=== PATIENT | female | born 1965 | race Caucasian/White ===

== ENCOUNTER 2017-05-03 15:30 | Outpatient (CLI) | payer OTHER ==
--- NOTE | 2017-05-05 10:17 | XRAY Report ---
LUMBAR SPINE, TWO VIEWS: 05/03/2017 CLINICAL HISTORY: Patient has back pain. FINDINGS: Five nonrib-bearing lumbar-type vertebrae are noted. Significant disk space narrowing is noted at L5-S1. Minimal anterior spurring is noted at L5-S1. Disk spaces appear normal. SI joints show no significant abnormality. Minor Schmorl's node deformities are seen along the superior aspect of L4 and along the superior aspect of L5. IMPRESSION: DEGENERATIVE DISK DISEASE IS NOTED AT L5-S1 WITHOUT OTHER ABNORMALITY. JOB #: [id number] EXT JOB #:[id number]
--- NOTE | 2017-05-05 10:34 | XRAY Report ---
AP PELVIS AND RIGHT HIP: 05/03/2017 CLINICAL HISTORY: Right hip pain. FINDINGS: Significant soft tissue calcification is noted adjacent to the lateral aspect of the right greater trochanter. This calcification is consistent with either peritendinitis calcarea or a calci fic bursitis. A small amount of calcification is seen in the soft tissues adjacent to the lateral as pect of the superior portion of the left greater trochanter. Differential diagnosis is peritendiniti s calcarea or a subtle sign of calcific bursitis. Hip joints show no significant narrowing. Symphysis pubis showed no narrowing. The inferior aspect of each SI joint shows a moderate degree of narrowing. Mild sclerosis is noted along the sacral side of the inferior half of the left SI joint. IMPRESSION: 1. MODERATE DEGREE OF SOFT TISSUE CALCIFICATION IS NOTED ADJACENT TO THE LATERAL ASPECT OF THE RIGHT GREATER TROCHANTER. ETIOLOGICAL CONSIDERATIONS INCLUDE A CALCIFIC BURSITIS OR PERITENDINITIS CALCAR EA. 2. TINY CALCIFICATION IS SEEN ADJACENT TO THE LATERAL SUPERIOR ASPECT OF THE LEFT GREATER TROCHANTER . THIS EITHER REPRESENTS PERITENDINITIS CALCAREA OR CALCIFIC BURSITIS. 3. OSTEOARTHRITIS IS SEEN IN THE INFERIOR HALF OF EACH SI JOINT. JOB #: [id number] EXT JOB #:[id number]
== END 2017-05-03 15:31 | disposition home or self-care (01) ==
LOC: DI.S 15:30
PROVIDERS: ATTEND Internal Medicine
DX: M25.851 Other specified joint disorders, right hip (principal); M16.11 Unilateral primary osteoarthritis, right hip; M51.37 Other intervertebral disc degeneration, lumbosacral region; M25.551 Pain in right hip; M54.5 Low back pain
CPT/HCPCS: 72100

== ENCOUNTER 2020-04-23 16:56 | Outpatient (CLI) | payer OTHER ==
[2020-04-23 20:26] LABS: ALBUMIN 4.4 g/dL (3.2-5.5); ALBUMIN/GLOBULIN RATIO 1.4 (1.0-2.2); BILIRUBIN,TOTAL 0.5 mg/dL (0.2-1.0); CALCIUM 9.5 mg/dL (8.5-10.3); CREATININE 0.7 mg/dL (0.4-1.0); TOTAL PROTEIN 7.6 g/dL (6.7-8.2)
== END 2020-04-23 16:57 | disposition home or self-care (01) ==
LOC: LAB.S 16:56
PROVIDERS: ATTEND Internal Medicine
DX: B35.1 Tinea unguium (principal); Z51.81 Encounter for therapeutic drug level monitoring; Z79.899 Other long term (current) drug therapy
CPT/HCPCS: 36415; 80053

== ENCOUNTER 2020-09-19 14:41 | Outpatient (CLI) | payer OTHER | END 2020-09-19 14:42 | disposition home or self-care (01) | LOC: LAB 14:41 | PROVIDERS: ATTEND Internal Medicine | DX: R50.9 Fever, unspecified (principal); Z20.828 Contact with and (suspected) exposure to other viral communicable diseases ==

== ENCOUNTER 2020-10-27 17:42 | Outpatient (CLI) | payer OTHER ==
[2020-10-27 19:55] LABS: BILIRUBIN,URINE NEGATIVE (NEGATIVE); GLUCOSE, URINE (UA) NEGATIVE (NEGATIVE); KETONES,URINE (UA) 15 mg/dL (NEGATIVE); LEUKOCYTE ESTERASE, URINE LARGE (NEGATIVE); NITRITE,URINE NEGATIVE (NEGATIVE); OCCULT BLOOD,URINE MODERATE (NEGATIVE); PROTEIN,URINE 30 mg/dL (NEGATIVE); UROBILINOGEN,URINE 0.2 (NORMAL) E.U./dL (NORMAL)
[2020-10-27 20:04] LABS: CLARITY,URINE CLOUDY (CLEAR)
[2020-10-27 20:05] LABS: SQUAMOUS EPITHELIAL CELL,UR FEW Squamous (<= Few)
[2020-10-27 20:06] LABS: BACTERIA,URINE Moderate /HPF (None Seen)
== END 2020-10-27 17:43 | disposition home or self-care (01) ==
LOC: LAB.S 17:42
PROVIDERS: ATTEND Internal Medicine
DX: R30.0 Dysuria (principal)
CPT/HCPCS: 81001; 81003; 87086; 87181

== ENCOUNTER 2021-04-21 10:46 | Outpatient (CLI) | payer OTHER ==
[2021-04-21 17:14] LABS: BILIRUBIN,URINE NEGATIVE (NEGATIVE); GLUCOSE, URINE (UA) NEGATIVE (NEGATIVE); KETONES,URINE (UA) NEGATIVE (NEGATIVE); LEUKOCYTE ESTERASE, URINE NEGATIVE (NEGATIVE); NITRITE,URINE NEGATIVE (NEGATIVE); OCCULT BLOOD,URINE NEGATIVE (NEGATIVE); PROTEIN,URINE NEGATIVE (NEGATIVE); UROBILINOGEN,URINE 0.2 (NORMAL) E.U./dL (NORMAL)
[2021-04-21 17:38] LABS: CLARITY,URINE CLEAR (CLEAR)
[2021-04-21 18:14] LABS: BACTERIA,URINE None Seen /HPF (None Seen); EPITHELIAL CELLS,UR RARE Transitional /HPF (<= Few); RBC,URINE None Seen /HPF (0-5); SQUAMOUS EPITHELIAL CELL,UR NONE SEEN (<= Few); WBC,URINE 0-3 /HPF (0-5)
== END 2021-04-21 10:47 | disposition home or self-care (01) ==
LOC: LAB.S 10:46
PROVIDERS: ATTEND Internal Medicine
DX: N39.0 Urinary tract infection, site not specified (principal)
CPT/HCPCS: 81001; 87086

== ENCOUNTER 2022-03-26 16:55 | Outpatient (CLI) | payer OTHER ==
[2022-03-26 21:00] LABS: ALBUMIN 4.3 g/dL (3.2-5.5); ALKALINE PHOSPHATASE 47 IU/L (42-121); ALT ALANINE AMINOTRANSFERASE 18 IU/L (10-60); AST ASPARTATE AMINOTRANSFERASE 24 IU/L (10-42); BILIRUBIN,TOTAL 0.6 mg/dL (0.2-1.0); TOTAL PROTEIN 6.9 g/dL (6.7-8.2)
[2022-03-26 21:22] LABS: BILIRUBIN,DIRECT < 0.1 mg/dL (0.1-0.5)
== END 2022-03-26 16:56 | disposition home or self-care (01) ==
LOC: LAB.S 16:55
PROVIDERS: ATTEND Internal Medicine
DX: B35.1 Tinea unguium (principal)
CPT/HCPCS: 36415; 80076

== ENCOUNTER 2023-03-01 07:59 | Outpatient (CLI) | payer OTHER ==
--- NOTE | 2023-03-02 10:39 | Mammography Report ---
BILATERAL DIGITAL SCREENING MAMMOGRAM 3D/2D WITH EXAGGERATED CC: 03/01/2023 CLINICAL: Routine screening. Family history of breast cancer. Comparison is made to exam dated: 02/07/2015 mammogram - [facility]. There are scattered areas of fibroglandular density in both breasts (category b / 25%-50% glandular t issue). No significant masses, calcifications, or other findings are seen in either breast. There has been no significant interval change. IMPRESSION: NEGATIVE There is no mammographic evidence of malignancy. A 1 year screening mammogram is recommended. Based on the Tyrer Cuzick model (a risk assessment model) the patients lifetime risk is 9.3% and her 10 year risk is 3.0%. According to the ACR, ACS, and NCCN guidelines, an annual breast MRI exam holli g with mammogram is recommended if the patients lifetime risk is 20% or greater. This exam was interpreted at Station ID: [id number]. NOTE: For mammograms, a report in lay terms will be sent to the patient. Approximately 15% of breast malignancies will not be visualized mammographically. In the management of a palpable breast mass, a negative mammogram must not discourage biopsy of a clinically suspicious lesion. Electronically Signed By: Layne [email or web address]:03/01/2023 13:16:37 letter sent: No_Letter ACR BI-RADS Category 1: Negative 3341F PARENCHYMAL PATTERN: (A) - The breast(s) demonstrate(s) scattered fibroglandular densities. BI-RADS CATEGORY: (1) - 1 Mammogram [id number] 1 year screening LATERALITY: (B)
== END 2023-03-01 08:00 | disposition home or self-care (01) ==
LOC: DI.S 07:59
PROVIDERS: ATTEND Internal Medicine
DX: Z12.31 Encounter for screening mammogram for malignant neoplasm of breast (principal); Z80.3 Family history of malignant neoplasm of breast